=== PATIENT | female | born 1935 | race Caucasian/White ===

== ENCOUNTER 2024-07-11 17:54 | Observation (INO) ==
[2024-07-11] MEDS ORDERED: iohexoL-300 100 ML VIAL ONE (18:53)
[2024-07-11 19:25] LABS: PARTIAL THROMBOPLASTIN TIME 29.7 secs (24.9-33.3)
[2024-07-11 19:30] LABS: PT - PROTHROMBIN TIME 11.1 secs (9.9-12.6)
[2024-07-11 19:35] LABS: BASOPHILS # (AUTO) 0.1 10^3/uL (0.0-0.1); BASOPHILS % (AUTO) 0.9 %; EOSINOPHILS # (AUTO) 0.3 10^3/uL (0.0-0.7); EOSINOPHILS % (AUTO) 4.2 %; HCT - HEMATOCRIT 45.5 % (37.0-47.0); HGB - HEMOGLOBIN 14.4 g/dL (12.0-16.0); LYMPHOCYTES # (AUTO) 1.6 10^3/uL (1.5-3.5); LYMPHOCYTES % (AUTO) 20.5 %; MEAN CORPUSCULAR HEMOGLOBIN 31.8 pg (27.0-31.0); MEAN CORPUSCULAR HGB CONC 31.6 g/dL (32.0-36.0); MEAN CORPUSCULAR VOLUME 100.4 fL (81.0-99.0); MONOCYTES # (AUTO) 0.5 10^3/uL (0.0-1.0); MONOCYTES % (AUTO) 7.1 %; NEUTROPHILS # (AUTO) 5.1 10^3/uL (1.5-6.6); PLT - PLATELET COUNT 286 10^3/uL (130-450); RED BLOOD COUNT 4.53 10^6/uL (4.20-5.40); RED CELL DISTRIBUTION WIDTH 12.3 % (12.0-15.0); WHITE BLOOD COUNT 7.6 x10^3/uL (4.8-10.8)
[2024-07-11 19:36] LABS: ALBUMIN 4.4 g/dL (3.2-5.5); ALBUMIN/GLOBULIN RATIO 1.5 (1.0-2.2); ALKALINE PHOSPHATASE 76 IU/L (42-121); ALT ALANINE AMINOTRANSFERASE 20 IU/L (10-60); AST ASPARTATE AMINOTRANSFERASE 21 IU/L (10-42); BILIRUBIN,TOTAL 0.4 mg/dL (0.2-1.0); BUN - BLOOD UREA NITROGEN 14 mg/dL (6-20); CALCIUM 9.5 mg/dL (8.5-10.3); CARBON DIOXIDE - CO2 31 mmol/L (21-32); CHLORIDE 101 mmol/L (101-111); CREATININE 0.6 mg/dL (0.6-1.3); GFR - MDRD 95 (>89); GLUCOSE 96 mg/dL (74-104); POTASSIUM 3.5 mmol/L (3.5-4.5); SODIUM 139 mmol/L (135-145); TOTAL PROTEIN 7.4 g/dL (6.4-8.9)
[2024-07-11] MEDS: iohexoL-300 100 ML VIAL IVP ONE (19:59)
--- NOTE | 2024-07-11 20:10 | CT Report ---
PROCEDURE: CT Head WO INDICATIONS: L eye vision loss, transient TECHNIQUE: Noncontrast 4.5 mm thick angled axial sections acquired from the foramen magnum to the vertex. For radiation dose reduction, the following was used: automated exposure control, adjustment of mA and/or kV according to patient size. COMPARISON: None FINDINGS: Image quality: Excellent. CSF spaces: Basal cisterns are patent. No extra-axial fluid collections. The ventricles are symmetric in size and shape. Brain: Focal calcification in left cerebellum is seen. Small calcifications are seen in bilateral basal ganglia. No acute intracranial bleed. No mass effect. There is cerebral volume loss for age, with resultant ventricular and sulcal prominence. There are periventricular and deep white matter chronic small vessel ischemic changes. There is intracranial internal carotid artery atherosclerosis. Skull and face: Calvarium and visualized facial bones appear intact, without suspicious lesions. Sinuses: Visualized sinuses and mastoids are clear. IMPRESSION: 1. No acute intracranial pathology. 2. Age-related volume loss and mild white matter chronic small vessel ischemic changes. Focal parenchymal calcification involving left cerebellum. Small foci of calcifications also seen in bilateral basal ganglia. Reviewed by: Gordon Grubbs MD on 07/11/2024 8:09 PM PDT Approved by: Gordon Grubbs MD on 07/11/2024 8:09 PM PDT Station ID: [id number]
--- NOTE | 2024-07-11 20:12 | CT Report ---
PROCEDURE: CT Angio Head/Neck INDICATIONS: L eye vision loss, transient TECHNIQUE: After the administration of intravenous contrast, 1 mm thick sections acquired from the aortic arch through the Rickman of Javier. 3-dimensional gxhapag-gthhovlyz-tyhirxlxtn (MIP) and/or volume rendering reformats were acquired of the central intracranial vasculature and neck separately. For radiation dose reduction, the following was used: automated exposure control, adjustment of mA and/or kV according to patient size. CONTRAST: 80 ML OMNI COMPARISON: None. FINDINGS: Image quality: Diagnostic. HEAD CT: CSF Spaces: Basal cisterns are patent. No extra-axial fluid collections. Ventricles are normal in size and shape. Brain: No significant abnormality is seen for scanning technique. Skull and face: Calvarium and visualized facial bones appear intact, without suspicious lesions. Sinuses: Visualized sinuses and mastoids are clear. HEAD CT ANGIOGRAPHY: Anterior circulation: Intracranial internal carotid arteries are normal in size and flow. The flow within the paired anterior cerebral arteries is normal and symmetric. The flow within the middle cerebral arteries is normal and symmetric. The anterior communicating artery is seen. No aneurysms are seen. Posterior circulation: Visualized portions of the vertebral arteries demonstrate normal caliber, and join to form a normal appearing basilar artery. Flow within the posterior cerebral arteries is normal and symmetric. No aneurysms are seen. NECK CT ANGIOGRAPHY: Carotid system: The great vessels demonstrate a conventional anatomy as they arise from the aortic arch. The origins of the common carotid arteries appear patent. The common carotid arteries demonstrate normal caliber and courses. The bifurcation regions are both widely patent. The internal carotid arteries demonstrate normal calibers and courses. Posterior circulation: The origins of the vertebral arteries both appear widely patent. The more superior extracranial portions of both vertebral arteries also demonstrate normal courses and calibers. They join to form a normal appearing basilar artery. Soft tissues: Visualized neck soft tissues demonstrate no suspicious abnormalities. Bones: No suspicious bony lesions. Visualized cervical spine appears normally aligned. IMPRESSION: No significant intracranial arterial abnormality is seen. No significant abnormality is seen within the arteries of the neck. The estimate of stenosis included in the report of the imaging study was calculated using the NASCET method Reviewed by: Gordon Duvall MD on 07/11/2024 8:10 PM PDT Approved by: Gordon Duvall MD on 07/11/2024 8:10 PM PDT Station ID: [id number]
--- NOTE | 2024-07-11 20:28 | ED Physician Documentation ---
History of Present Illness Stated complaint Stated Complaint: BLURRY VISION Chief complaint Chief Complaint: Heent History obtained from History obtained from: Patient History of Present Illness Pain level max: 0 Pain level now: 0 Additonal information Additional information: Patient is an 88-year-old female who presents to the emergency department with vision loss to the left eye x 2 minutes today. She states same thing occurred about 2 days ago but only lasted for about 30 seconds. She states that her vision went stern and then black. She states similar episode occurred several years ago, diagnosed with a TIA. She states she was started on Eliquis at that time. 2.5 mg p.o. twice daily. No numbness or tingling. No facial droop. No difficulty with speech or swallowing. Patient is fully asymptomatic now. Denies any history of atrial fibrillation. She states she is on diltiazem for her esophagus. She states that she is on the Eliquis for the TIA. Review of Systems Constitutional Denies: Fever or Chills Respiratory Denies: Cough Gastrointestinal Denies: Vomiting Integumentary/Breast Denies: Rash Meds/Allgy Home Medications Ambulatory Orders Medication Instructions Recorded Confirmed diltiazem HCl 120 mg 120 mg PO Q12H 01/11/2406/27 capsule,extended release 12 hr (Cardizem SR) omeprazole 20 mg capsule,delayed 20 mg PO BID 01/11/24 07/11/24 release rosuvastatin 5 mg tablet 5 mg PO QDAY 01/11/24 apixaban 2.5 mg tablet (Eliquis) 2.5 mg PO BID #180 ta bs 06/20/24 07/11/24 Allergies Allergies Allergy/AdvReac Type Severity Reaction Status Date / Time Latex, Natural Rubber Allergy Intermediate Rash Verified 07/11/24 18:10 Penicillins AdvReac Unknown Rash Verified 07/11/24 18:10 [facility] Active Problems All Active Problems (Updated 07/11/24 @ 21:47 by NAVYA Recinos) GERD (gastroesophageal reflux disease) (Acute) Transient visual loss (Acute) Transient ischemic attack (Acute) History of anemia (Acute) Age-related osteoporosis without current pathological fracture (Acute) Age-related osteoporosis with current pathological fracture, unspecified site, initial encounter for fracture (Acute) History of esophageal spasm (Acute) Osteoporosis (Acute) Insomnia (Acute) History of stroke (Acute) Hypercholesteremia (Acute) HTN (hypertension) with goal to be determined (Acute) Constipated (Acute) Social History Social History Smoking Status: Former smoker Relationship: Do you feel safe in your home environment?: Yes Suffered physical, verbal, emotional, or financial abuse?: No Exam Exam Vital Signs: Vital Signs x48h Temp Pulse Resp BP Pulse Ox 07/11/24 20:08 82 18 174/91 H 95 07/11/24 18:58 86 17 195/89 H 95 07/11/24 17:55 36.5 C 83 18 196/101 H 94 Constitutional normal general appearance and no apparent distress HENMT oropharynx normal moist mucous membranes Eyes PERRL, EOMs intact bilaterally and normal visual laguna by confrontation Neck/C-Spine visual inspection normal Respiratory breath sounds equal bilaterally, normal respiratory effort and clear to auscultation bilaterally Cardiovascular normal heart rate noted and regular rhythm noted Gastrointestinal abdomen normal to inspection, abdomen soft to palpation, nontender to palpation and nondistended Genitourinary no CVA tenderness Extremities no edema Neurology chief radiology II-XII intact, no focal motor deficit noted, no sensory deficits noted, speech normal and GCS 15 Psychiatry mental status grossly normal and oriented x3 Skin skin color normal Results Vitals Vitals: Vital Signs - 24 hr 07/11/24 17:55 07/11/24 18:27 07/11/24 18:58 Temperature 36.5 C Temperature Source Skin Pulse Rate 83 86 Respiratory Rate 18 17 Blood Pressure 196/101 H 195/89 H O2 Saturation 94 95 O2 Source Room air Room air Pain Intensity 2 0 0 07/11/24 20:08 Temperature Temperature Source Pulse Rate 82 Respiratory Rate 18 Blood Pressure 174/91 H O2 Saturation 95 O2 Source Room air Pain Intensity 0 Oxygen O2 Source Room air Labs Labs: Laboratory Tests 07/11/24 19:10 WBC 7.6 RBC 4.53 Hgb 14.4 Hct 45.5 MCV 100.4 H MCH 31.8 H MCHC 31.6 L RDW 12.3 Plt Count 286 MPV 9.0 Neut # (Auto) 5.1 Lymph # (Auto) 1.6 [place] # (Auto) 0.5 Eos # (Auto) 0.3 Baso # (Auto) 0.1 Absolute Nucleated RBC 0.00 Nucleated RBC % 0.0 ESR 8 PT 11.1 INR 1.0 APTT 29.7 Sodium 139 Potassium 3.5 Chloride 101 Carbon Dioxide 31 Anion Gap 7.0 BUN 14 Creatinine 0.6 Estimated GFR (MDRD) 95 Glucose 96 Calcium 9.5 Total Bilirubin 0.4 AST 21 ALT 20 Alkaline Phosphatase 76 C-Reactive Protein < 0.5 Total Protein 7.4 Albumin 4.4 Globulin 3.0 Albumin/Globulin Ratio 1.5 PD Medical Decision Making ED course Complexity details: reviewed results, re-evaluated patient, considered differential, d/w patient and d/w family ED course: Patient is in sinus rhythm on telemetry monitoring. Head CT does not show any acute abnormalities CT angio head and neck does not show any acute abnormalities either. No significant laboratory abnormalities. Discussed the case with telestroke, they do not recommend changing any of her anticoagulation but did recommend placing her in the hospital overnight for observation, serial neurological exams, MRI and cardiac echo. Discussed the case with the hospitalist who accepts. Patient will be placed in observation. Patient remained asymptomatic in the emergency department. This document was made in part using voice recognition software. While efforts are made to proofread this document, sound alike and grammatical errors may occur. Discharge Plan Discharge Patient Disposition: ED Place in Observation Condition: Stable Clinical Impression: Transient ischemic attack, Transient visual loss Interventions: ED Admission Assessment Last Done: 07/11/24 21:43 NIHSS Time 1845: Time: 18:45 Level of Consciousness Level of consciousness: (0) Alert, Keenly responsive LOC Questions: (0) Answers both Q's correct LOC Commands: (0) Performs both correctly Gaze Best Gaze: (0) Normal Visual Visual: (0) No loss Facial Palsy Facial Palsy: (0) Normal, symmetrical movement Motor Arms (both separate) Motor Arm (right): (0) No drift Motor Arm (left): (0) No drift Motor Legs (both separate) Motor Leg (right): (0) No drift Motor Leg (left): (0) No drift Limb Ataxia Limb Ataxia: (0) Absent Sensory Sensory: (0) Normal Best Language Best Language: (0) No aphasia Dysarthria Dysarthria: (0) Normal Extinction and Inattention (formally neg Extinction and inattention: (0) No abnormality Total Score/Results Total Score/Result: 0
[2024-07-11 21:26] LABS: CRP - C-REACTIVE PROTEIN < 0.5 mg/dL (<0.5)
[2024-07-11] MEDS: PANTOPRAZOLE 40 MG TABLET PO STA (21:31)
--- NOTE | 2024-07-11 21:40 | HISTORY & PHYSICAL EXAMINATION ---
Chief Complaint Chief Complaint Chief Complaint: left eye transient vision loss History of Present Illness Admitted From Admitted From:: home History Obtained From Records Reviewed: PCP visits History obtained from: Patient, daughter at bedside. History of Present Illness HPI Comment/Other: 88-year-old female with history of stroke who presents to the hospital complaining of partial left eye vision loss which was transient and that happened 2 days ago and then again today complete loss of vision in her left eye which was also quite transient. It had resolved by the time she arrived at the emergency department. She has a history of CVA and has been on Eliquis 2.5 mg twice daily for several years. Telestroke neurologist was consulted this evening and did not have any additions to her medications. She denies any history of A-fib or heart problems. She was a very remote cigarette smoker. She does not drink alcohol. She has not had any recent falls or dizziness. CODE STATUS: Patient does not want CPR she would be okay with short-term intubation. Her daughter would make her medical decisions if she were unable to. Meds/Allgy Home Medications Ambulatory Orders Medication Instructions Recorded Confirmed diltiazem HCl 120 mg 120 mg PO Q12H 01/11/2406/27 capsule,extended release 12 hr (Cardizem SR) omeprazole 20 mg capsule,delayed 20 mg PO BID 01/11/24 07/11/24 release rosuvastatin 5 mg tablet 5 mg PO QDAY 01/11/24 apixaban 2.5 mg tablet (Eliquis) 2.5 mg PO BID #180 ta bs 06/20/24 07/11/24 Allergies Allergies Allergy/AdvReac Type Severity Reaction Status Date / Time Latex, Natural Rubber Allergy Intermediate Rash Verified 07/11/24 18:10 Penicillins AdvReac Unknown Rash Verified 07/11/24 18:10 [facility] Active Problems All Active Problems (Updated 07/11/24 @ 21:47 by NAVYA Recinos) GERD (gastroesophageal reflux disease) (Acute) Transient visual loss (Acute) Transient ischemic attack (Acute) History of anemia (Acute) Age-related osteoporosis without current pathological fracture (Acute) Age-related osteoporosis with current pathological fracture, unspecified site, initial encounter for fracture (Acute) History of esophageal spasm (Acute) Osteoporosis (Acute) Insomnia (Acute) History of stroke (Acute) Hypercholesteremia (Acute) HTN (hypertension) with goal to be determined (Acute) Constipated (Acute) Social History Social History Smoking Status: Former smoker Relationship: Do you feel safe in your home environment?: Yes Suffered physical, verbal, emotional, or financial abuse?: No POLST Patient has POLST: No POLST Status: Okay to intubate. NO CPR Review of Systems Status of ROS: 10 or more systems reviewed and unremarkable except as noted in history and below Constitutional Denies: Fatigue or Malaise Eyes Reports: Amaurosis and Corrective lenses Ears, nose, mouth, and throat Denies: Tinnitus, Change in hearing or Vertigo Cardiovascular Denies: Irregular heart rate, chest pain, palpitations, edema or shortness of breath with exertion Respiratory Denies: Shortness of breath or Cough Gastrointestinal Denies: Abdominal pain, Nausea, Vomiting or Poor appetite Genitourinary Denies: Painful urination or Urinary frequency Musculoskeletal Reports: Back pain (Chronic) Integumentary/Breast Denies: Rash Neurological Denies: Headache, General weakness, Focal weakness, Weakness in extremities, Numbness in extremities, Pre-existing deficit, Abnormal gait, Dizziness, Vertigo, Confusion, Memory problems or Difficulty communicating thoughts Endocrine Denies: Fatigue Hematologic/Lymphatic Denies: Anemia Prior Level of Functionality: Lives alone 10 minutes from her daughter. Drives and performs all of her own activities of daily living. She does her shopping, cooks her meals, and keeps her house clean Exam Exam Vital Signs: Vital Signs x48h Temp Pulse Resp BP Pulse Ox 07/11/24 21:21 95 18 177/102 H 07/11/24 20:08 82 18 174/91 H 95 07/11/24 18:58 86 17 195/89 H 95 07/11/24 17:55 36.5 C 83 18 196/101 H 94 Constitutional normal general appearance, no apparent distress and average body habitus HENMT normocephalic, head/scalp atraumatic, hearing grossly normal bilaterally, external ears normal, nasal mucous membranes normal and oropharynx normal Eyes PERRL, conjunctivae normal and visual acuity normal Neck/C-Spine visual inspection normal Lymph no lymphadenopathy noted Chest inspection of chest normal Respiratory breath sounds equal bilaterally, normal respiratory effort and clear to auscultation bilaterally Cardiovascular normal heart rate noted Gastrointestinal abdomen normal to inspection and abdomen soft to palpation Extremities normal to inspection and normal to palpation Neurology facilities locator II-XII intact, no movement abnormality noted, no focal motor deficit noted, no sensory deficits noted, gait normal, speech normal and GCS 15 Psychiatry mental status grossly normal, oriented x3, thought process normal, cooperative and affect normal Skin skin color normal Conclusion/Plan Problem List (1) Transient ischemic attack: Plan: I will place the patient on telemetry overnight to monitor for cardiac arrhythmias. I have ordered MRI of the brain for the morning to assess for any CVA. I have ordered echocardiogram. She is already on Eliquis 2.5 mg twice daily at the advice of the telestroke neurologist we will not change this. I have continued her Eliquis. She has a remote history of tobacco use, quit smoking 40 years ago. She denies any history of atrial fibrillation or cardiac arrhythmia. Discussed with Dr. Choi in the emergency department who is recommending that I admit this patient overnight to observation for completion of stroke workup with MRI of the brain and echocardiogram. (2) History of stroke: Plan: Stroke several years ago, she does not have any resultant deficits from this. She is already on a statin, Eliquis, and her blood pressure is normally controlled. She did miss her medicines this evening and is hypertensive in the emergency department (3) HTN (hypertension) with goal to be determined: Plan: She is hypertensive on presentation to the emergency department. At home she took diltiazem CD120 mg twice daily. I have continued this medication. She missed dose this evening. I have restarted. Selected Entries 07/11/24 17:55 07/11/24 18:58 07/11/24 20:08 Pulse Rate 83 86 82 Blood Pressure 196/101 H 195/89 H 174/91 H 07/11/24 21:21 Pulse Rate 95 Blood Pressure 177/102 H (4) Hypercholesteremia: Plan: Continue rosuvastatin (5) GERD (gastroesophageal reflux disease): Plan: with h/o Barretts esophagus per chart review. PPI continued. Plan I have spent 78 minutes in the care of this patient today. This includes time [id number], review and ordering of diagnostic imaging and laboratory studies and consultation with other providers. Lab Results Lab results reviewed: Yes 07/11/24 19:10 07/11/24 19:10 Core Measures Anticipated LOS I expect patient to be DC'd or transferred within 96 hours.: Yes Issues Hospital Issues and Management Plan: New TIA symptoms twice within several days. I am admitting this patient to observation for MRI of the brain and echocardiogram. She is already anticoagulated on Eliquis therefore I will not add chemical DVT prophylaxis. Stroke - Rehab Assessment Not Ordered - Medical Reason: Not indicated AMI - Statin at Admit Aspirin Prescribed on Admit: No Not Ordered - Medical Reason: Contraindicated
[2024-07-11] MEDS ORDERED: ONDANSETRON 4 MG/2 ML VIAL IVP PRN (21:54)
[2024-07-11] MEDS ORDERED: ACETAMINOPHEN 325 MG TABLET PO PRN (21:54)
[2024-07-11] MEDS ORDERED: SODIUM CHLORIDE FLUSH 0.9% 10 ML SYRINGE IVP PRN (21:54)
[2024-07-11] MEDS ORDERED: IBUPROFEN 600 MG TABLET PO PRN (21:54)
[2024-07-11] MEDS: diltiaZEM CD 120 MG CAPSULE PO SCH (22:19)
[2024-07-11] MEDS: APIXABAN 2.5 MG TABLET PO SCH (22:20)
[2024-07-11] MEDS: CALCIUM CARBONATE CHEW 500 MG TABLET PO SCH (22:20)
[2024-07-12] MEDS: SODIUM CHLORIDE FLUSH 0.9% 10 ML SYRINGE IVP SCH (00:22)
[2024-07-12 08:22] VITALS: TEMP 97.7; O2SAT 91
[2024-07-12] MEDS: polyethylene glycoL 3350 17 GM PACKET PO SCH (08:26)
[2024-07-12] MEDS: PANTOPRAZOLE 40 MG TABLET PO SCH (08:26)
[2024-07-12] MEDS: ATORVASTATIN 10 MG TABLET PO SCH (08:26)
[2024-07-12] MEDS ORDERED: PANTOPRAZOLE 40 MG TABLET PO SCH (09:00)
--- NOTE | 2024-07-12 12:46 | PHARMACY PROGRESS NOTE ---
Best Possible Medication History Admit Date and Time: 07/11/242115 Home Medications Medication Instructions Recorded Confirmed Type rosuvastatin 5 mg tablet 5 mg PO QDAY 01/11/24 History apixaban 2.5 mg tablet (Eliquis) 2.5 mg PO BID #180 ta bs 06/20/24 07/11/24 Rx ascorbate calcium (vitamin C) 500 500 mg PO DAILY 06/2707/12/24 History mg tablet biotin 5 mg capsule 5 mg PO DAILY 07/12/2407/12 History calcium carbonate (Calcium 500) 1,000 mg PO QPM 07/12/24 History cholecalciferol (vitamin D3) 25 25 mcg PO DAILY 07/12/24 History mcg (1,000 unit) tablet (Vitamin D3) diltiazem HCl 180 mg 180 mg PO Q24H 07/12/2406/27 History capsule,extended release 24 hr esomeprazole magnesium 20 mg 20 mg PO DAILY 07/12/24 0 07/12/24 History capsule,delayed release (Acid Power Lineman (esomeprazole)) ferrous sulfate 325 mg (65 mg 325 mg PO Q72H 07/12/24 07/12/24 History iron) tablet (Feosol) loratadine 5 mg-pseudoephedrine ER 1 tab PO BID 07/12/24 History 120 mg tablet,extended release,12hr (Claritin-D 12 Hour) multivitamin (Daily Multi-Vitamin 1 tab PO DAILY 07/1207/12/24 History tablet) omega-3 fatty acids 500 mg PO DAILY 07/12/24 History polyethylene glycol 3350 17 17 g PO DAILY 07/12/24 History gram/dose oral powder (Miralax) triamcinolone acetonide 55 mcg 1 spray intranasal [place] Y 07/12/24 07/12/24 History nasal spray aerosol (24 Hour Nasal Allergy) vitamin E 268 mg (400 unit) capsule 268 mg PO DAILY 07/12/24 History Processed by: Pharmacy Medications reviewed in ED?: No Medication History completed: Yes Patient Interview: Completed Secondary Source(s): Pharmacy records and Insurance records [facility] Statement: Per [facility] interview with patient, review of [employer] insurance records, and call to CATIA Fishman [facility] to verify diltiazem strength and dose. As the person ultimately responsible for medication therapy, providers are able to order a medication from an existing home medication list in [facility] via the "Reconcile Routine" prior to Confirmation of that medication by emotional support teacher. Such practice is discouraged except when the physician, in their clinical judgment, deems that a medical need exists for a medication without regard to previous use.
--- NOTE | 2024-07-12 12:47 | Discharge Summary ---
"Discharge Summary Admit Date: 07/11/24 Discharge Date: 07/12/24 Discharging Provider: Luba Flores PA-C Primary Care Provider: Akanksha Estrella Code Status: Do Not Attempt Resuscitation DIAGNOSES Discharge Diagnoses with Status of Each Condition: Transient ischemic attack History of stroke Hypertension Hypercholesterolemia GERD HPI History of Present Illness: 88-year-old female with history of stroke who presents to the hospital complaining of partial left eye vision loss which was transient and that happened 2 days ago and then again today complete loss of vision in her left eye which was also quite transient. It had resolved by the time she arrived at the emergency department. She has a history of CVA and has been on Eliquis 2.5 mg twice daily for several years. Telestroke neurologist was consulted this evening and did not have any additions to her medications. She denies any history of A-fib or heart problems. She was a very remote cigarette smoker. She does not drink alcohol. She has not had any recent falls or dizziness. CODE STATUS: Patient does not want CPR she would be okay with short-term intubation. Her daughter would make her medical decisions if she were unable to. CONSULTS | PROCEDURES Procedures: Head CT: No acute intracranial pathology. Age-related volume loss and mild white matter chronic small vessel ischemic changes. Focal parenchymal calcification involving the left cerebellum small foci of calcifications also seen in the bilateral basal ganglia CTA of the head and neck no significant intracranial arterial abnormalities seen. No significant abnormality is seen within the arteries in the neck MRI of the brain: No findings of acute or subacute infarction are seen. Age- appropriate brain parenchymal volume loss and chronic small vessel ischemic change can be seen. Echocardiogram:The left ventricular cavity is small. The visual left ventricular ejection fraction is estimated at 55 to 60%. The right ventricle is mildly dilated. The right ventricular systolic function is normal. Mild tricuspid regurgitation present. HOSPITAL COURSE Hospital Course: 88-year-old female admitted with symptoms of TIA and history of stroke in the past without residual deficit. ED provider discussed the case with telestroke who recommended no changes to the patient's medication but overnight observation for serial neurologic exams, MRI and cardiac echo. The above was completed. She did not have any arrhythmias on her telemetry. She remained in sinus rhythm. With negative workup she was discharged to home in stable condition. She will resume all of her previous medications. She was initially hypertensive in the emergency department but that resolved with administration of her home diltiazem. She has recently seen the summer sessions director who would wanted her to return next week and she will be doing this. I discussed her discharge recommendations with her daughter and also recommended neurology follow-up if there were still concerns as this was a negative workup and the patient had had 2 episodes of symptoms prior to admission. daughter Radha's contact information not elsewhere in the chart phone # [phone] Also recommended follow-up in 7 to 10 days with primary care provider. ALLERGIES Allergies Allergy/AdvReac Type Severity Reaction Status Date / Time Latex, Natural Rubber Allergy Intermediate Rash Verified 07/11/24 18:10 Penicillins AdvReac Unknown Rash Verified 07/11/24 18:10 MEDICATIONS Ambulatory Orders Medication Instructions Recorded Confirmed rosuvastatin 5 mg tablet 5 mg PO QDAY 01/11/24 apixaban 2.5 mg tablet (Eliquis) 2.5 mg PO BID #180 ta bs 06/20/24 07/11/24 ascorbate calcium (vitamin C) 500 500 mg PO DAILY 06/2707/12/24 mg tablet biotin 5 mg capsule 5 mg PO DAILY 07/12/2407/12 calcium carbonate (Calcium 500) 1,000 mg PO QPM 07/12/24 cholecalciferol (vitamin D3) 25 25 mcg PO DAILY 07/12/24 mcg (1,000 unit) tablet (Vitamin D3) diltiazem HCl 180 mg 180 mg PO Q24H 07/12/2406/27 capsule,extended release 24 hr esomeprazole magnesium 20 mg 20 mg PO DAILY 07/12/24 0 07/12/24 capsule,delayed release (Acid Interactive Digital Media Specialist (esomeprazole)) ferrous sulfate 325 mg (65 mg 325 mg PO Q72H 07/12/24 07/12/24 iron) tablet (Feosol) loratadine 5 mg-pseudoephedrine ER 1 tab PO BID 07/12/24 120 mg tablet,extended release,12hr (Claritin-D 12 Hour) multivitamin (Daily Multi-Vitamin 1 tab PO DAILY 07/1207/12/24 tablet) omega-3 fatty acids 500 mg PO DAILY 07/12/24 polyethylene glycol 3350 17 17 g PO DAILY 07/12/24 gram/dose oral powder (Miralax) triamcinolone acetonide 55 mcg 1 spray intranasal [place] Y 07/12/24 07/12/24 nasal spray aerosol (24 Hour Nasal Allergy) vitamin E 268 mg (400 unit) capsule 268 mg PO DAILY 07/12/24 PHYSICAL EXAM AT DISCHARGE Vital Signs: Vital Signs x48h Temp Pulse Resp BP Pulse Ox 07/12/24 13:00 36.5 C 98 20 137/81 H 91 L General Appearance: positive No acute distress and Alert Eyes Bilateral: positive Normal inspection ENT: positive ENT inspection nml Neck: positive Nml inspection Respiratory: positive No respiratory distress and Breath sounds nml Cardiovascular: positive Regular rate & rhythm Abdomen: positive No distention Skin: positive Color nml Extremities: positive No pedal edema Neurologic/Psychiatric: positive Oriented x3 LABS 07/11/24 19:10 07/11/24 19:10 FOLLOW UP Follow Up: pcp 7-10 d TIME SPENT Time Spent in Discharge (Minutes): 45 Discharge Plan Discharge Patient Disposition: Home, Self Care Condition: Stable Prescriptions: Continued Eliquis 2.5 mg tablet 2.5 mg PO BID Qty: 180 3RF esomeprazole magnesium [Acid Interactive Digital Media Specialist (esomeprazole)] 20 mg capsule,delayed release(DR/EC) 20 mg PO DAILY multivitamin [Daily Multi-Vitamin] Tablet 1 tab PO DAILY ascorbate calcium (vitamin C) 500 mg tablet 500 mg PO DAILY ferrous sulfate [Feosol] 325 mg (65 mg iron) tablet 325 mg PO Q72H omega-3 fatty acids Capsule 500 mg PO DAILY biotin 5 mg capsule 5 mg PO DAILY vitamin E 268 mg (400 unit) capsule 268 mg PO DAILY cholecalciferol (vitamin D3) [Vitamin D3] 25 mcg (1,000 unit) tablet 25 mcg PO DAILY Claritin-D 12 Hour 5-120 mg tablet extended release 12 hr 1 tab PO BID triamcinolone acetonide [24 Hour Nasal Allergy] 55 mcg aerosol,spray 1 spray intranasal DAILY Rx Instructions: administer into each nostril calcium carbonate [Calcium 500] 500 mg calcium (1,250 mg) tablet,chewable 1,000 mg PO QPM polyethylene glycol 3350 [Miralax] 17 gram/dose powder 17 g PO DAILY diltiazem HCl 180 mg capsule,extended release 24hr 180 mg PO Q24H rosuvastatin 5 mg tablet 5 mg PO QDAY Diet: Regular Interventions: Belongings Inventory Last Done: 07/11/24 22:20 Discharge Last Done: 07/12/24 14:32 Discharge Checklist - Nursing Last Done: 07/12/24 14:32 Health Concerns: You came into the hospital with several TIA episodes. It was a smart thing to do to come here and get checked. All of your imaging was negative. You had a CT of your head, a CT angiogram of your head and neck, an ultrasound of your heart called an echocardiogram and an MRI of your brain. The ultrasound of your heart result is still pending but otherwise all of your test results are negative for anything other than changes related to age. All of your blood work also looks normal. I do not think you should make any changes to your medications. Continue to take your cholesterol medication and your blood thinning medication. I would not increase the dose on your blood thinning medication. I think that would put you at more risk with regards to falls. You should continue to take the diltiazem exactly as you have been taking it in the evening. Your blood pressures were a little bit high when you initially presented to the emergency department but they actually have come down into a very normal range since that time. You can return to all of your normal activities. Make sure to get plenty of rest. Driving- less is more! [place] to [place] and take the bus, take a cab, share a ride with a friend!! I will ask that your PCP helps you with referral to neurology to double check everything that is going on with you. Important to see the eye doctor in followup, and tell them about these issues you have had. Assessment: Call your primary care office and get a hospital follow-up scheduled within the next 7 to 10 days. They hold appointments open for patients like you. At that followup, get a neurology referral, and check the result on your echocardiogram. Print Language: Frisian Patient Instructions: TIA Follow-up Care: Akanksha Bell NP [Primary Care Provider] -"
--- NOTE | 2024-07-12 13:11 | MRI Report ---
PROCEDURE: MRI Brain WO INDICATIONS: TIA TECHNIQUE: Noncontrast axial T1 spin echo, axial T2 fast spin echo, sagittal and axial FLAIR, coronal T2 fast spin echo, axial gradient echo, axial diffusion and ADC through the brain. COMPARISON: Correlation is made with CT examinations, 07/11/2024 FINDINGS: Image quality: Motion artifact is noted. CSF Spaces: Basal cisterns are patent. No extra-axial fluid collections. Ventricles are normal in size and shape. Brain: No intracranial masses or hemorrhage. Mason/white matter interface is normal. Brainstem appears normal. Diffusion-weighted images demonstrate no acute ischemic insult. No chronic ischemic insults. Normal intravascular flow voids are present. Age-appropriate brain parenchymal volume loss and chronic small vessel ischemic change can be seen. Skull and face: Calvarium has normal marrow signal. Orbits appear normal. Incidental note is made of bilateral lens replacements. Sinuses: Sinuses and mastoids are clear. IMPRESSION: No findings of acute or subacute infarction are seen. Age-appropriate brain parenchymal volume loss and chronic small vessel ischemic change can be seen. Reviewed by: Bob Ibarra MD on 07/12/2024 12:09 PM DEBO Approved by: Bob Ibarra MD on 07/12/2024 12:09 PM DEBO Station ID: [id number]
[2024-07-12 13:37] VITALS: BP 137/81
--- NOTE | 2024-07-12 17:05 | ECHO Report ---
Version: 1 Study ID: [id number] [id number] Adult Echocardiogram Report Name: Cathy Araujo Study Date: 07/12/2024, 10: 43 AM BP: 127 / 85 mmHg Patient Location[place] [facility] [id number] HR: 92 bpm : 1935 (MM/DD/YYYY) Gender: Female Height: 61 in Age: 88 Years Weight: 124.561 lb Reason For Study: TIA History: TIA h/o stroke Procedure: A complete two-dimensional transthoracic echocardiogram was performed (2D, M- mode, Doppler and color flow Doppler). Indication: Evaluate cardiac and valve function. This study was focused secondary to limited cardiac windows. Technically difficult study due to body habitus and lung interference. The patient was comfortable and cooperative throughout the procedure. Interpretation Summary The left ventricular cavity is small. The visual left ventricular ejection fraction is estimated at 55 to 60%. The right ventricle is mildly dilated. The right ventricular systolic function is normal. Mild tricuspid regurgitation present. Left Ventricle: The left ventricular cavity is small. There is normal left ventricular wall thickness. Global left ventricular systolic function is normal. The visual left ventricular ejection fraction is estimated at 55 to 60%. The interventricular septum is flattened in diastole ('D' shaped left ventricle) consistent with right ventricular volume overload. Diastolic function could not be accurately assessed due to unobtainable data. Right Ventricle: The right ventricle is mildly dilated. The right ventricular systolic function is normal. Aortic Valve: The aortic valve is trileaflet. The aortic valve is mildly thickened. Aortic valve sclerosis is present without stenosis. No hemodynamically significant valvular aortic stenosis. Trace aortic regurgitation is present. Mitral Valve: The mitral valve leaflets appear thickened, but with normal motion. Moderate mitral annular calcification is present. The mitral annular calcification is both posterior and anterior. No evidence of mitral stenosis is seen. There is trace mitral regurgitation. Tricuspid Valve: The tricuspid valve is normal in structure and function. Mild tricuspid regurgitation present. Pulmonic Valve: The pulmonic valve is normal in structure and function. Trace pulmonic valvular regurgitation is present. Left Atrium: The left atrium is mildly dilated. The left atrial volume indexed to body surface area is 35 ml/m2. This refers to the maximal volume measured prior to mitral valve opening. Right Atrium: The right atrium is mildly dilated. The inferior vena cava is normal in diameter (<2.1cm) and there is complete collapse with inspiration (estimated right atrial pressure 0-5mmHg). Atrial Septum: The interatrial septum appears normal, without evidence of shunt by 2D imaging and color Doppler. Aorta: The diameter of the ascending aorta is 3.4 cm. The aorta at the sinus of Valsalva measures 3.3cm. Pulmonary Artery: The pulmonary artery is moderately dilated. Main PA and branches are dilated. The pulmonary artery systolic pressure, calculated from a peak tricuspid regurgitant velocity in conjunction with an estimated right atrial pressure, is 26 - 31mmHg. Pericardium/Pleural Space: There is no pericardial effusion. CPT Codes: 62587/[id number]: Transthoracic Echo with Spectral and Color Doppler. Doppler Measurements & Calculations Ao max P.1 mmHg Ao V2 max: 123.2 cm/sec LV V1 max: 104.9 cm/sec LV V1 max P.4 mmHg LV V1 mean: 85.7 cm/sec LV V1 mean P.1 mmHg LV V1 VTI: 19.7 cm RAP systole: 5.0 mmHg TR max P.8 mmHg TR max merari: 253.9 cm/sec MMode/2D Measurements & Calculations Ao root diam: 3.3 cm EF (est.): 36.8 % ESV(sp4-el): 56.7 ml Heart Rate: 92.0 BPM Height (metric): 154.9 cm IVSd: 1.01 cm LA A4C-A/L: 19.3 cm² LA dimension: 5.4 cm LA ESV-A/L: 54.4 ml LAV(MOD-sp2): 45.8 ml LAV(MOD-sp4): 47.9 ml LVIDd: 2.32 cm LVIDs: 1.77 cm LVPWd: 1.04 cm Systolic Pressure: 127.0 mmHg Other Measurements & Calculations Ao root diam: 3.3 cm Ao V2 max: 123.2 cm/sec BMI: 23.5 kilograms/m² BSA: 1.54 m² BSA(Haycock): 1.57 m² Diastolic Pressure: 85.0 mmHg EDV(Teich): 18.5 ml EF (est.): 36.8 % EF(Teich): 49.8 % ESV(sp4-el): 56.7 ml ESV(Teich): 9.3 ml FS: 23.8 % Heart Rate: 92.0 BPM Height (metric): 154.9 cm IVSd: 1.01 cm LA A4C-A/L: 19.3 cm² LA dimension: 5.4 cm LA ESV-A/L: 54.4 ml LAV(MOD-sp2): 45.8 ml LAV(MOD-sp4): 47.9 ml LV V1 max: 104.9 cm/sec LV V1 mean: 85.7 cm/sec LV V1 mean P.1 mmHg LVIDd: 2.32 cm LVIDs: 1.77 cm LVPWd: 1.04 cm RAP systole: 5.0 mmHg RVSP(TR): 30.8 mmHg Systolic Pressure: 127.0 mmHg TR max P.8 mmHg TR max merari: 253.9 cm/sec TV max P.8 mmHg Weight (metric): 56.5 kg EF(sp-el): 50.0 % Joe Lanza MD 07/12/2024, 5: 05 PM Ordering Physician: Luba Flores Referring Physician: Cesar Pinto Performed By: Ivett Lott RDCS
[2024-07-12] MEDS ORDERED: diltiaZEM CD 180 MG CAPSULE PO SCH (21:00)
[2024-07-12] MEDS ORDERED: diltiaZEM CD 120 MG CAPSULE PO SCH (21:00)
== END 2024-07-12 14:50 | disposition home or self-care (01) ==
LOC: MS2 17:54 → ED 17:54 → MS2 21:43
PROVIDERS: ADMIT Physician Assistant Medical; ATTEND Physician Assistant Medical
DX: Z86.73 Personal history of transient ischemic attack (TIA), and cerebral infarction without residual deficits; G45.9 Transient cerebral ischemic attack, unspecified; I10 Essential (primary) hypertension; Z79.01 Long term (current) use of anticoagulants; Z87.891 Personal history of nicotine dependence; K21.9 Gastro-esophageal reflux disease without esophagitis; E78.00 Pure hypercholesterolemia, unspecified